=== PATIENT | male | born 1945 | race Caucasian/White ===

== ENCOUNTER 2017-05-30 00:17 | Emergency (ER) | payer OTHER, BC ==
[~2017-05-30] VITALS: Ht 172.7 cm; Wt 95.3 kg
[2017-05-30 00:51] LABS: HEMATOCRIT 41.2 % (38.0-50.0); MCH 31.9 PG (29.0-34.0); MCHC 33.7 G/DL (30.0-36.0); MCV 94.5 FL (86-99); MEAN PLAT.VOLUME 10.5 uM^3 (9.0-12.4); PLATELET COUNT 181 K/uL (156-360); RBC DIS.WIDTH-CV 13.8 % (11.8-14.6); RBC DIS.WIDTH-SD 47.9 % (39-53); RED BLOOD COUNT 4.36 M/uL (4.00-5.50); WHITE BLOOD COUNT 4.6 K/uL (4.1-10.2)
[2017-05-30 00:59] LABS: CHLORIDE 108 mEq/L (99-109); POTASSIUM 3.7 mEq/L (3.7-5.4); SODIUM 143 mEq/L (136-147)
[2017-05-30 01:01] LABS: GLUCOSE 109 mg/dL (70-99)
[2017-05-30 01:02] LABS: ANION GAP 9 MEQ/L (2-14)
[2017-05-30 01:06] LABS: UREA NITROGEN (BUN) 14 mg/dL (9-23)
[2017-05-30 01:12] LABS: TROP-I INTERPRETATION NEGATIVE; TROPONIN-I < 0.01 ng/mL (0.0-0.30)
[2017-05-30 01:26] LABS: GFR ESTIMATE (CALCULATED) > 59 mL/min/ (58.99-99999)
[2017-05-30 04:53] LABS: TROP-I INTERPRETATION NEGATIVE; TROPONIN-I < 0.01 ng/mL (0.0-0.30)
[2017-05-30 05:11] VITALS: BP 157/105
== END 2017-05-30 05:13 | disposition left against medical advice (07) ==
LOC: EME 00:17 → EDOF 03:54 → EME 03:54 → CANRESERV 03:57 → ENRESERV 03:57
PROVIDERS: Emergency Medicine
DX: R07.9 Chest pain, unspecified (principal); I10 Essential (primary) hypertension; Z88.1 Allergy status to other antibiotic agents; F17.200 Nicotine dependence, unspecified, uncomplicated
CPT/HCPCS: 71020; 80048; 84484; 85027; 93005